=== PATIENT | male | born 1990 | race Caucasian/White ===

== ENCOUNTER → 2024-08-14 | Outpatient (CLI) | payer OTHER | LOC: M RAD 17:17 | PROVIDERS: ATTEND Physician Assistant | DX: M25.562 Pain in left knee (principal) ==

== ENCOUNTER 2024-10-17 12:05 | Emergency (ER) | payer OTHER ==
[~2024-10-17] VITALS: Ht 185.4 cm; Wt 87.3 kg
[2024-10-17 14:14] VITALS: BP 129/77; TEMP 97.3; O2SAT 100
== END 2024-10-17 14:17 | disposition home or self-care (01) ==
LOC: M ED 12:05
DX: S92.354A Nondisplaced fracture of fifth metatarsal bone, right foot, initial encounter for closed fracture (principal); W01.0XXA Fall on same level from slipping, tripping and stumbling without subsequent striking against object, initial encounter; Y92.410 Unspecified street and highway as the place of occurrence of the external cause; Y93.02 Activity, running; Y99.1 Military activity